=== PATIENT | female | born 2000 | race Two or more races ===

== ENCOUNTER 2021-12-02 02:27 | Emergency (ER) | payer OTHER ==
[~2021-12-02] VITALS: Ht 152.4 cm; Wt 81.8 kg
[2021-12-02 02:44] VITALS: BP 118/68
== END 2021-12-02 03:33 | disposition home or self-care (01) ==
LOC: EMS 02:29
DX: T51.91XA Toxic effect of unspecified alcohol, accidental (unintentional), initial encounter (principal); Y92.89 Other specified places as the place of occurrence of the external cause
CPT/HCPCS: 99283; Z7502